=== PATIENT | female | born 1945 | race Hispanic/Latino ===

== ENCOUNTER 2017-02-25 21:14 | Emergency (ER) | payer MEDICARE, BC ==
[2017-02-25 21:43] VITALS: BMI 29.6
--- NOTE | 2017-02-25 21:53 | ED PDOC ---
Arrival/HPI - General Chief Complaint: Alcohol Ingestion Time Seen by Provider: 02/25/17 21:26 Historian: Patient - History of Present Illness Narrative History of Present Illness (Text): 02/25/17 21:30 Rut Jose is a 71 year old female, whose PMHx includes Sjogren's and back surgery is brought to the Emergency department by EMS after a mechanical fall. Patient reports someone in her apartment called the ambulance after she drank two bottles of wine, fell, and could not get back up. According to EMS they found three empty wine bottles. She denies hitting her head or LOC. Patient is currently has no complaints and is awake, alert, and oriented. Patient denies chest pain, shortness of breath, dizziness, lightheadedness, or other complaints. Time/Duration: Prior to Arrival Symptom Onset: Sudden Symptom Course: Unchanged Context: Home Past Medical History - Provider Review Nursing Documentation Reviewed: Yes - Infectious Disease Hx of Infectious Diseases: None - Cardiac Hx Cardiac Disorders: Yes Hx Hypertension: Yes Hx Pacemaker: No - Pulmonary Hx Respiratory Disorders: No - Neurological Hx Neurological Disorder: No Hx Paralysis: No - HEENT Hx HEENT Disorder: No - Renal Hx Renal Disorder: No - Endocrine/Metabolic Hx Endocrine Disorders: Yes Hx Hypothyroidism: Yes Hx Systemic Lupus Erythematosus: Yes - Hematological/Oncological Hx Blood Disorders: No Hx Blood Transfusions: No Hx Blood Transfusion Reaction: No - Integumentary Hx Dermatological Disorder: No - Musculoskeletal/Rheumatological Hx Musculoskeletal Disorders: Yes - Gastrointestinal Hx Gastrointestinal Disorders: Yes - Genitourinary/Gynecological Hx Genitourinary Disorders: No Hx Reproductive Disorders: No - Psychiatric Hx Psychophysiologic Disorder: Yes Hx Depression: Yes Hx Emotional Abuse: No Hx Physical Abuse: No Hx Substance Use: No - Surgical History Hx Gastric Bypass Surgery: Yes Hx Orthopedic Surgery: Yes - Anesthesia Hx Anesthesia Reactions: No Hx Malignant Hyperthermia: No - Suicidal Assessment Feels Threatened In Home Enviroment: No Family/Social History - Physician Review Nursing Documentation Reviewed: Yes Family/Social History: Unknown Family HX Smoking Status: Former Smoker Hx Alcohol Use: Yes Frequency of alcohol use: Few days per week Hx Substance Use: No Hx Substance Use Treatment: No Allergies/Home Meds Allergies/Adverse Reactions: Allergies morphine Allergy (Verified 06/18/16 12:49) SWELLING Home Medications: Home Meds Medication Instructions Recorded Confirmed Duloxetine Hydrochloride [Cymbalta] 60 mg PO QAM 11/23/13 06/18/16 Hydroxychloroquine Sulfate 200 mg PO DAILY 11/23/13 06/18/16 Levothyroxine Sodium 0.112 mg PO QAM 11/23/13 06/18/16 ALPRAZolam [Xanax] 2 mg PO TID 06/18/16 06/18/16 Zolpidem Tartrate [Ambien] 10 mg PO HS 06/18/16 06/18/16 Review of Systems - Physician Review All systems were reviewed & negative as marked: Yes - Review of Systems Systems not reviewed;Unavailable: Other (alcohol on breath, possibly limits ROS accuracy) Respiratory: absent: SOB Cardiovascular: absent: Chest Pain Neurological: absent: Headache Physical Exam Vital Signs Temp Pulse Resp BP Pulse Ox 02/25/17 22:50 88 16 121/60 94 L 02/25/17 21:25 97.6 F 96 H 16 132/68 96 Temperature: Afebrile Blood Pressure: Normal Pulse: Regular Respiratory Rate: Normal Appearance: Positive for: Well-Appearing, Non-Toxic, Comfortable, Other (AOB) Pain Distress: None Mental Status: Positive for: Alert and Oriented X 3 - Systems Exam Head: Present: Normocephalic, Ecchymosis (on chin as noted.) Pupils: Present: PERRL Extroacular Muscles: Present: EOMI Conjunctiva: Present: Normal Mouth: Present: Moist Mucous Membranes Pharnyx: Present: Normal. No: ERYTHEMA, EXUDATE Neck: Present: Normal Range of Motion. No: MIDLINE TENDERNESS Respiratory/Chest: Present: Clear to Auscultation, Good Air Exchange. No: Respiratory Distress, Accessory Muscle Use Cardiovascular: Present: Regular Rate and Rhythm, Normal S1, S2. No: Murmurs Abdomen: Present: Normal Bowel Sounds. No: Tenderness, Distention, Peritoneal Signs Back: Present: Normal Inspection. No: Midline Tenderness Upper Extremity: Present: Normal Inspection, Normal ROM. No: Cyanosis, Edema Lower Extremity: Present: Normal Inspection, Normal ROM. No: Edema Neurological: Present: GCS=15, CN II-XII Intact, Speech Normal Skin: Present: Warm, Dry, Normal Color, Other (mild ecchymosis in right lower chin, non-tender, mild swelling.). No: Rashes Psychiatric: Present: Alert, Oriented x 3, Normal Insight, Normal Concentration Medical Decision Making ED Course and Treatment: 02/25/17 21:35 Impression: 71 year old female with ETOH and mechanical fall. Plan: -- CT Head without contrast -- Reassess and disposition Progress Notes: 02/25/17 23:26 CT Head Without Intravenous Contrast FINDINGS: Brain: There are areas of diminished density in the white matter bilaterally consistent with chronic small vessel ischemic changes. [place]th[place]-white matter differentiation is intact and unremarkable. No mass lesion. No evidence of intracranial hemorrhage. Ventricles: Unremarkable. No ventriculomegaly. Bones/joints: No evidence of fracture. Soft tissues: Unremarkable. Sinuses: Unremarkable as visualized. No acute sinusitis. Mastoid air cells: Unremarkable as visualized. No mastoid effusion. IMPRESSION: 1. No evidence of fracture. No evidence of intracranial bleed. 2. Chronic ischemic changes bilaterally 02/25/17 23:40 CT negative. Patient is sober with normal speech and gait is back to baseline and is able to ambulate - ok for d/c. - Lab Interpretations Lab Results: Lab Results 02/25/17 22:11: POC Glucose (mg/dL) 105 - RAD Interpretation Radiology Orders: 02/25/17 21:35 Brain [HEAD W/O CONTRAST] [CT] Stat Herbologist: Radiologist - Scribe Statement The provider has reviewed the documentation as recorded by the Scribe 02/25/2017 Melissa Spears Provider Scribe Attestation: All medical record entries made by the Scribe were at my direction and personally dictated by me. I have reviewed the chart and agree that the record accurately reflects my personal performance of the history, physical exam, medical decision making, and the department course for this patient. I have also personally directed, reviewed, and agree with the discharge instructions and disposition. Disposition/Present on Arrival - Present on Arrival Any Indicators Present on Arrival: No History of DVT/PE: No History of Uncontrolled Diabetes: No Urinary Catheter: No History of Decub. Ulcer: No History Surgical Site Infection Following: None - Disposition Have Diagnosis and Disposition been Completed?: Yes Diagnosis: Alcohol abuse Disposition: HOME/ ROUTINE Disposition Time: 23:45 Patient Plan: Discharge Condition: GOOD Additional Instructions: Stop alcohol use. Return to the emergency department if any new concerning symptoms. Referrals: Arsenio Pinzon MD [Family Provider] - Follow up with primary Forms: [employer] ([place]ian)
[2017-02-25 22:52] VITALS: BP 121/60; PULSE 88; RESP 16; TEMP 97.6; O2SAT 94
--- NOTE | 2017-02-26 09:44 | CT ---
PROCEDURE: CT HEAD WITHOUT CONTRAST. HISTORY: fell; etoh; possible head injury COMPARISON: 11/23/2013 TECHNIQUE: Axial computed tomography images were obtained through the head/brain without intravenous contrast. Radiation dose: Total exam DLP = 897 mGy-cm. This CT exam was performed using one or more of the following dose reduction techniques: Automated exposure control, adjustment of the mA and/or kV according to patient size, and/or use of iterative reconstruction technique. FINDINGS: HEMORRHAGE: No intracranial hemorrhage. BRAIN: No mass effect or edema. No atrophy or chronic microvascular ischemic changes. VENTRICLES: Unremarkable. No hydrocephalus. CALVARIUM: Unremarkable. PARANASAL SINUSES: Unremarkable as visualized. No significant inflammatory changes. MASTOID AIR CELLS: Unremarkable as visualized. No inflammatory changes. OTHER FINDINGS: None. IMPRESSION: No acute findings
== END 2017-02-26 00:43 | disposition home or self-care (01) ==
LOC: ED 21:14
DX: F10.10 Alcohol abuse, uncomplicated (principal)